=== PATIENT | male | born 1965 | race Caucasian/White ===

== ENCOUNTER 2024-07-25 19:09 | Observation (INO) ==
[2024-07-25] MEDS: Morphine 4 MG/ML VIAL (1 ml) IV ONE (19:47)
[2024-07-25] MEDS ORDERED: Ondansetron 4 mg VIAL 2 MG/ML 2 ml VIAL ONE (19:51)
[2024-07-25] MEDS: Ondansetron 4 mg VIAL 2 MG/ML 2 ml VIAL IV ONE (19:52)
[2024-07-25 20:07] LABS: ABS Basophils 0.1 10^3/uL (0.0-0.1); ABS Lymphocytes 0.6 10^3/uL (1.0-4.8); ABS Monocytes 0.6 10^3/uL (0.0-1.1); ABS Neutrophils 9.9 10^3/uL (1.5-7.6); ABS Nucleated RBC 0.01 10^3/ul; Eosinophil % 0.2 %; Hematocrit 47.2 % (38-53); Hemoglobin 16.6 g/dL (13.2-16.3); Lymphocyte % 5.3 %; Mean Corpuscular Hemoglobin 31.9 pg (27-33); Mean Corpuscular Hgb Conc 35.2 g/dL (31-36); Mean Corpuscular Volume 90.7 fL (80-97); Mean Platelet Volume 7.5 fL (7.5-11.2); Platelet Count 297 10^3/uL (150-450); Red Cell Distribution Width 13.6 % (12-17); White Blood Count 11.1 10^3/uL (3.6-10.2)
[2024-07-25] MEDS: Lactated Ringers 1000 ml BAG 1,000 ML IV ONE (20:08)
[2024-07-25] MEDS: fentaNYL 100 mcg/2 ml 50 MCG/ML VIAL IV SLOW PU ONE (20:12)
[2024-07-25 20:25] LABS: High Sens Troponin Baseline 6 pg/mL (<20)
[2024-07-25 20:47] LABS: ALT 36 U/L (7-52); Albumin 4.7 g/dL (3.2-5.2); Albumin/Globulin Ratio 1.9 (1-3); Alkaline Phosphatase 57 U/L (35-149); Anion Gap 13 mmol/L (2-16); Blood Urea Nitrogen 23 mg/dL (6-24); CO2 Carbon Dioxide 25 mmol/L (22-32); Calcium 10.4 mg/dL (8.6-10.3); Chloride 97 mmol/L (101-111); Creatinine, Serum 1.55 mg/dL (0.67-1.17); Globulin 2.5 g/dL (2-4); Glucose 127 mg/dL (70-100); Lipase 40 U/L (11.0-82.0); Sodium 135 mmol/L (135-145); Total Bilirubin 0.8 mg/dL (0.2-1.0); Total Protein 7.2 g/dL (6.4-8.9); eGFR CKD-EPI 51.6 (>60)
[2024-07-25 23:10] LABS: Urine Appearance Clear; Urine Bilirubin Negative (Negative); Urine Blood 1+ (Negative); Urine Color Light-Yellow; Urine Glucose Negative (Negative); Urine Ketones Negative (Negative); Urine Nitrite Negative (Negative); Urine Protein Negative (Negative); Urine Specific Gravity 1.047 (1.002-1.030); Urine Urobilinogen Negative (Negative); Urine pH 6.5 (5.0-8.0)
[2024-07-25 23:16] LABS: Urine Bacteria Absent /HPF (Absent); Urine Red Blood Cell 3+(>10/hpf) /HPF (0-Trace); Urine White Blood Cell Trace(0-5/hpf) /HPF (0-Trace)
[2024-07-25] MEDS ORDERED: Acetaminophen IV 1 GM/100ML 1,000 MG/100 ML BAG IV PRN (23:34)
[2024-07-25 23:56] LABS: Potassium Redraw 2.8 mmol/L (3.5-5.0)
[2024-07-26] MEDS: NS 0.9% w/ 20 Meq KCL 1000 ml 1,000 ML IV SCH (02:13)
[2024-07-26 05:48] LABS: ABS Basophils 0.1 10^3/uL (0.0-0.1); ABS Eosinophils 0.1 10^3/uL (0.0-0.5); ABS Lymphocytes 0.7 10^3/uL (1.0-4.8); ABS Neutrophils 7.2 10^3/uL (1.5-7.6); Eosinophil % 1.1 %; Hematocrit 42.7 % (38-53); Lymphocyte % 8.2 %; Mean Corpuscular Hemoglobin 32.3 pg (27-33); Mean Corpuscular Hgb Conc 35.2 g/dL (31-36); Mean Corpuscular Volume 91.7 fL (80-97); Platelet Count 224 10^3/uL (150-450); Red Blood Count 4.66 10^6/uL (4.06-5.63); Red Cell Distribution Width 13.6 % (12-17); White Blood Count 9.2 10^3/uL (3.6-10.2)
[2024-07-26 06:31] LABS: Calcium 8.9 mg/dL (8.6-10.3); Creatinine, Serum 1.61 mg/dL (0.67-1.17); Potassium 3.4 mmol/L (3.5-5.0); eGFR CKD-EPI 49.3 (>60)
[2024-07-26] MEDS: KCL 20 MEQ/100 ML IVPREMIX 20 MEQ/100 ML BAG IV ONE (07:57)
[2024-07-26] MEDS: Lactated Ringers 1000 ml BAG 1,000 ML IV SCH (07:58)
[2024-07-26] MEDS ORDERED: Lactated Ringers 1000 ml BAG 1,000 ML IV SCH (08:00)
[2024-07-26] MEDS ORDERED: Rocuronium 50 mg VIAL 10 mg/ml 5 ml VIAL (50 mg) ONE ×2 (09:34→10:21)
[2024-07-26] MEDS ORDERED: fentaNYL 250 mcg/5 ml 50 MCG/ML 5 ml VIAL (250 MCG) ONE (09:34)
[2024-07-26] MEDS ORDERED: Midazolam 2 mg/2 ml VIAL 1 mg/ml 2 ml VIAL (2 mg) ONE (09:34)
[2024-07-26] MEDS ORDERED: cefTRIAXone 2 gm/50 mL D5W 2 GM/50 ML BAG IV ONE (10:14)
[2024-07-26] MEDS ORDERED: Propofol 10 MG/ML 20 ML BTL ONE (10:21)
[2024-07-26] MEDS ORDERED: Lidocaine 2% PF 5 ML VIAL ONE (10:21)
[2024-07-26] MEDS ORDERED: Iohexol 180 (CONTRAST) 10 ML SDV IV ONE (10:36)
[2024-07-26] MEDS ORDERED: Ondansetron 4 mg VIAL 2 MG/ML 2 ml VIAL ONE (11:00)
[2024-07-26] MEDS ORDERED: Dexamethasone IV 4 MG/ML VIAL 1 ml VIAL ONE (11:00)
[2024-07-26] MEDS ORDERED: fentaNYL 100 mcg/2 ml 50 MCG/ML VIAL ONE (12:53)
[2024-07-26 14:39] VITALS: BP 114/83
== END 2024-07-26 15:10 | disposition home or self-care (01) ==
LOC: ED 19:09 → SUATTDRO 23:30 → EDHOLD 23:30 → INTOOBSV 23:30 → EDHOLD 07-26 09:37 → AA 07-26 10:21
PROVIDERS: ADMIT Internal Medicine; ATTEND Internal Medicine